=== PATIENT | female | born 1990 | race Caucasian/White ===

== ENCOUNTER → 2016-10-03 | Outpatient (CLI) | payer OTHER ==
[~2016-10-03] MED LIST: PRENTAB26 PO
[2016-10-07 23:54] LABS: CHLAMYDIA TRACH RNA*** NOT DETECTED (NOT DETECTED); GC (NEIS GONORRHOEAE)RNA** NOT DETECTED (NOT DETECTED)
== END | disposition home or self-care (01) ==
LOC: C.LABSPEC 17:42
PROVIDERS: ATTEND Obstetrics & Gynecology
DX: Z12.4 Encounter for screening for malignant neoplasm of cervix (principal)

== ENCOUNTER → 2016-10-03 | Outpatient (CLI) | payer OTHER | END | disposition home or self-care (01) | LOC: C.PAPS 10:10 | PROVIDERS: ATTEND Obstetrics & Gynecology | DX: Z01.419 Encounter for gynecological examination (general) (routine) without abnormal findings (principal) ==

== ENCOUNTER → 2017-10-09 | Outpatient (CLI) | payer OTHER | END | disposition home or self-care (01) | LOC: C.PAPS 08:34 | PROVIDERS: ATTEND Obstetrics & Gynecology | DX: Z01.411 Encounter for gynecological examination (general) (routine) with abnormal findings (principal); R87.612 Low grade squamous intraepithelial lesion on cytologic smear of cervix (LGSIL) ==

== ENCOUNTER → 2017-10-09 | Outpatient (CLI) | payer OTHER ==
[2017-10-09 16:11] LABS: PROLACTIN 9.14 ng/mL
[2017-10-09 16:12] LABS: FOLLICLE STIMULAT HORMONE 5.4 IU/L
== END | disposition home or self-care (01) ==
LOC: C.LAB1850 14:28
PROVIDERS: ATTEND Obstetrics & Gynecology
DX: N91.2 Amenorrhea, unspecified (principal)

== ENCOUNTER 2017-10-26 17:37 | Emergency (ER) | payer BC, OTHER ==
[~2017-10-26] VITALS: Ht 160 cm; Wt 123.7 kg
[2017-10-26 17:50] VITALS: BP 137/83; PULSE 90; TEMP 36.8; O2SAT 100; Ht 160 cm; Wt 123.7 kg
[2017-10-26] MEDS ORDERED: IBUPROFEN 200 MG TAB PO STA (18:19)
[2017-10-26] MEDS ORDERED: OXYCODONE/ACETAMINOPHEN 5-325 TAB PO STA (18:19)
--- NOTE | 2017-10-26 18:23 | EMERGENCY ROOM VISIT NOTE ---
ED Visit Note First contact with patient: 17:54 CHIEF COMPLAINT: knee pain HISTORY OF PRESENT ILLNESS: This patient is a 27-year-old female who presents to the emergency department with complaints of right knee pain after she twisted it prior to arrival. The patient reports that her "knee gave out." She went to the ground. She denies any other injuries. The patient has had chronic bilateral knee pain. She has never seen an orthopedic surgeon. She has not taken anything for pain. REVIEW OF SYSTEMS: A 6 system review of systems was completed with positives and pertinent negatives listed in the HPI. ALLERGIES: Sulfa MEDICATIONS: Reviewed PMH: Hypertension SOCIAL HISTORY: Denies tobacco or EtOH use. PHYSICAL EXAM: Vital Signs: Reviewed Nurse's notes, vital signs stable. GENERAL : 27-year-old female, no acute distress, but appears in pain, well-developed, well-nourished. MENTAL STATUS: Alert, oriented to person place and time, and cooperative. MUSCULOSKELETAL: The right knee is minimally swollen. There is no ecchymosis. There is no joint effusion present. The patient is tender over the medial aspect of the knee. There is no joint line tenderness. The patella not subluxate. Range of motion is limited secondary to pain. Strength of the quads and hamstrings is 5/5. Patellar tendon is intact. Pratima is with varus and valgus stressing. The foot and toes are warm and well-perfused. Dorsalis pedis pulse 2+. Sensation to pain and light touch is intact. Capillary refill less than 2 seconds. EMERGENCY DEPARTMENT COURSE: I examined the patient. The patient was medicated with 1 Percocet and Motrin 800 mg x-rays of the right knee were reviewed by myself and read by radiology IMPRESSION: Trace joint effusion and mild medial soft tissue swelling without fracture. The above report was generated using voice recognition software. It may contain grammatical, syntax or spelling errors. Electronically signed by: Yunier Cabrera M.D. 10/26/2017 6:45 PM Dictated Date/Time: 10/26/2017 6:44 PM The patient was placed in a knee immobilizer under my direction and the position was satisfactory. The patient was instructed on the use of crutches. The patient was discharged home in good condition. DIAGNOSIS: Right knee injury DISCHARGE INSTRUCTIONS: Ice and elevate knee for swelling and pain. Wear knee immobilizer when up and about. Use crutches - minimal weight on foot. Ibuprofen 800 mg every 8 hours Percocet 1-2 tabs every 4 hours for severe pain. Do not drink alcohol or drive while taking this medication. This may be taken with ibuprofen, but avoid Tylenol. Follow-up with Orthopedics for further evaluation and treatment -please call tomorrow morning for a follow-up appointment. A number has been provided. Do not hesitate to return to the emergency department with any new, worsening or concerning symptoms It was a pleasure participating in your care today This chart was completed in part utilizing [employer] Speech Voice Recognition software. Attempts were made to minimize the grammatical errors, random word insertions, pronoun errors and incomplete sentences. Any formal questions or concerns about the content, text or information contained within the body of this dictation should be directly addressed to the provider for clarification.
--- NOTE | 2017-10-26 18:46 | DIAGNOSTIC IMAGING REPORT ---
R KNEE 3 VIEWS HISTORY: 27 years-old Female R knee pain acute right knee pain COMPARISON: None available TECHNIQUE: 3 views of the right knee FINDINGS: No acute fracture, dislocation, osteochondral defect or significant degenerative changes. Mild medial soft tissue swelling about the knee. Trace joint effusion. IMPRESSION: Trace joint effusion and mild medial soft tissue swelling without fracture. The above report was generated using voice recognition software. It may contain grammatical, syntax or spelling errors. Electronically signed by: Yunier Cabrera M.D. 10/26/2017 6:45 PM Dictated Date/Time: 10/26/2017 6:44 PM
[2017-10-26] MEDS ORDERED: METO50TA16 PO (18:49)
[2017-10-26] MEDS ORDERED: OXYC-57 PO (19:14)
[2017-10-26] MEDS ORDERED: PERCOCET HOME PACK PO ONE (19:15)
== END 2017-10-26 20:03 | disposition home or self-care (01) ==
LOC: C.EDB 17:38 → C.EDD 20:03
DX: S89.91XA Unspecified injury of right lower leg, initial encounter (principal); M25.561 Pain in right knee; M25.461 Effusion, right knee; X50.9XXA Other and unspecified overexertion or strenuous movements or postures, initial encounter

== ENCOUNTER → 2018-01-26 | Day surgery (SDC) | payer OTHER ==
[2017-12-17 10:57] VITALS: BMI 51.0
--- NOTE | 2018-01-22 14:37 | PAT Medication Instructions ---
Service Date Jan 22, 2018. Current Home Medication List Multivit/Min/Iron/Fol Ac/Pren ( Vitamin), 1 TAB PO DAILY Medication Instructions For Your Scheduled Surgery - Hold the following medications the morning of surgery: Multivit/Min/Iron/Fol Ac/Pren ( Vitamin), 1 TAB PO DAILY If you have any questions please call us at [phone] or [phone] or [phone]
[2018-01-22 15:14] VITALS: Ht 154.9 cm; Wt 126.6 kg
[2018-01-22 15:58] LABS: CALCIUM 8.9 mg/dl (8.5-10.1); CREATININE 0.71 mg/dl (0.60-1.20); POTASSIUM 3.8 mmol/L (3.5-5.1)
[~2018-01-26] VITALS: Ht 154.9 cm; Wt 126.6 kg
[~2018-01-26] MED LIST changes: +ACETAMINOPHEN 1000 MG/100 ML IV IV ONE; +ACETIC ACID 4% (WHITE VINEGAR) 30ML ONE; +ATROPINE SULFATE 0.1 MG/ML 5ML SYR IV PRN; +DEXAMETHASONE SOD INJ 4 MG/ML VIAL ONE; +EpHEDrine SULFATE INJ 50 MG/ML AMP IV PRN; +FENTANYL CITRATE INJ 50 MCG/1 ML 2 ML VIAL IV PRN; +FENTANYL CITRATE INJ 50 MCG/1 ML 2 ML VIAL ONE; +FERRIC SUBSULFATE 8 GM VIAL ONE; +IBUPROFEN 600 MG TAB PO PRN; +IODINE SOLN STRONG 14 ML ONE; +KETOROLAC TROMETHAMINE 30 MG/ML VIAL IV. PRN; +LIDO 2%/EPINEPHRINE 1:100000 20 ML VIAL ONE; +LIDOCAINE HCL 2% 2 ML VIAL (20MG/ML) ONE; +MIDAZOLAM HCL 1 MG/ML 2ML VIAL ONE; +MoRPHine SULFATE 4 MG/ML 1 ML CARP\\VIAL IV PRN; +ONDANSETRON INJ 2 MG/ML 2 ML VIAL IV PRN; +ONDANSETRON INJ 2 MG/ML 2 ML VIAL ONE; +OXYCODONE/ACETAMINOPHEN 5-325 TAB PO PRN; +PROPOFOL IV EMULSION 10 MG/ML 20 ML VIAL ONE; +ROCURONIUM BROMIDE 10 MG/ML 5 ML VIAL ONE; +SCOPOLAMINE 1.5 MG TDSY TD ONE; +SODIUM CHLORIDE 0.9% 1000ML 1,000 ML IV SCH; +SUCCINYLCHOLINE CHLORIDE 20 MG/ML 10 ML VIAL IV ONE
--- NOTE | 2018-01-26 07:01 | History & Physical Bridge - [place] ---
H&P Re-Evaluation Bridge Note: I have examined the patient, reviewed the History & Physical and in the interval since the performance of the History & Physical I have noted the following changes of clinical significance: No changes noted
--- NOTE | 2018-01-26 07:34 | [facility] Post Operative Brief Note ---
Immediate Operative Summary Operative Date Jan 26, 2018. Pre-Operative Diagnosis Pap Smear Abnormality of Cervix with LGSIL--SKYE 2 Post-Operative Diagnosis Same Procedure(s) Performed Loop Electrosurgical Excision Procedure Surgeon Dr. Han Physician Allergist Immunologist Surgeon(s) None Estimated Blood Loss 10cc Findings Consistent with Post-Op Diagnosis Fluids (cc crystalloids) 700cc Specimens posterior cervix anterior cervix central cervix Drains None Anesthesia Type General Complication(s) none Disposition Accompanied Pt To Recover: no Disposition: Recovery Room / PACU
--- NOTE | 2018-01-26 07:36 | Discharge Instructions ---
Discharge Instructions Date of Service Jan 26, 2018. Visit Reason for Visit: Pap Smear Abnormality Of Cervix With Lgsil Discharge Discharge Diagnosis / Problem: s/p leep Discharge Goals Goal(s): Specific goals Activity Recommendations Activity Limitations: per Instructions/Follow-up section Anesthesia . Post Anesthesia Instructions: If you have had General Anesthesia or IV Sedation: * Do not drive today. * Resume driving when surgeon permits. * Do not make important decisions or sign legal documents today. * Call surgeon for: 1. Temperature elevations greater than 101 degrees F. 2. Uncontrollable pain. 3. Excessive bleeding. 4. Persistent nausea and vomiting. 5. Medication intolerance (nausea, vomiting or rash). * For nausea and vomiting use only clear liquids such as: tea, soda, bouillon until nausea subsides, then gradually increase diet as tolerated. * If you have any concerns or questions, call your surgeon's office. If physician is unavailable and it is an emergency, call 911 or go to the nearest emergency room. . Instructions / Follow-Up Instructions / Follow-Up ACTIVITY RECOMMENDATIONS: * Avoid tampons, douching, hot tubs, pools, and intercourse until cleared by physician. * May shower as usual. * No strenuous activity for 72 hours. After 72 hours, you may do anything you feel like doing as long as it does not make you hurt or bleed. SPECIAL CARE INSTRUCTIONS: Special Diet: * Mild nausea may occur in the immediate post-operative period. * Take clear liquids such as tea, cola or bouillon until all nausea has subsided; you may then resume your normal diet. Special Care: * Light bleeding and vaginal spotting can last from a few days to 3-4 weeks. Call your doctor if bleeding becomes heavier than the heaviest part of your period. * Check your temperature twice a day for one week. If it goes above 100.4 degrees Fahrenheit (38.0 Celsius), notify your doctor. * Call your doctor's office for an appointment for 4 weeks after your surgery. FOLLOW-UP VISIT: Call your doctor's office for an appointment for 4 weeks after your surgery. Diet Recommendations Recommended Home Diet: no limitations, resume previous diet Procedures Procedures Performed: Loop Electrosurgical Excision Procedure Pending Studies Studies pending at discharge: no Medical Emergencies . Who to Call and When: Medical Emergencies: If at any time you feel your situation is an emergency, please call 911 immediately. . Non-Emergent Contact Non-Emergency issues call your: Electrical Technician . . "Provider Documentation" section prepared by Shante Han. .
--- NOTE | 2018-01-26 07:59 | Anesthesia Progress Nt - [facility] ---
Anesthesia Post Op Note Date & Time Jan 26, 2018 at 07:59 Vital Signs Pain Intensity: 0 Vital Signs Past 12 Hours Date Time Temp Pulse Resp B/P (MAP) Pulse Ox O2 Delivery O2 Flow Rate FiO2 01/26/18 07:46 128/89 01/26/18 07:45 97 14 98 01/26/18 07:45 98 14 01/26/18 07:44 36.1 93 18 133/103 97 Mask 8 01/26/18 07:42 133/103 01/26/18 06:47 139/89 (106) 01/26/18 06:29 36.9 88 18 155/110 (125) 97 Room Air Notes Mental Status: alert / awake / arousable, participated in evaluation Pt Amnestic to Procedure: Yes Nausea / Vomiting: adequately controlled Pain: adequately controlled Airway Patency, RR, SpO2: stable & adequate BP & HR: stable & adequate Hydration State: stable & adequate Anesthetic Complications: no major complications apparent
[2018-01-26 08:28] VITALS: BP 109/74; PULSE 66; TEMP 36.5; O2SAT 96
--- NOTE | 2018-01-28 09:45 | OPERATIVE REPORT ---
DATE OF OPERATION: 01/26/2018 PREOPERATIVE DIAGNOSES: Cervical intraepithelial neoplasia 2 POSTOPERATIVE DIAGNOSIS: Cervical intraepithelial neoplasia 2. PROCEDURE: LEEP. SURGEON: Shante Han MD [employer] TE[employer]: None. ANESTHESIA: General per endotracheal tube. ESTIMATED BLOOD LOSS: 10 mL FLUIDS: 700 mL of IV fluid. URINE OUTPUT: None. INDICATIONS: The patient is a 27-year-old with an abnormal Pap smear, which was low grade, colposcopy biopsy shows SKYE 2 at 6 o'clock. She has opted for interventional procedure FINDINGS: A large transformation zone on the cervix. Acetowhite epithelium noted at 6 o'clock. No other significant lesions. COMPLICATIONS: None. DRAINS: None. DISPOSITION: To recovery room in stable condition. PROCEDURE: The patient was taken to the operating room, where she was identified verbally and by bracelet. She was placed in dorsal spine position, where general anesthesia was induced without difficulty. Then she was placed in [facility] and a timeout was held identifying correct patient, procedure, and positioning. The patient was draped with moistened blue towels. A coated speculum was placed into the vagina and suction was hooked to the speculum. Acetic acid was applied to the cervix and then evaluation of the cervix revealed acetowhite epithelium at the 6 o'clock position, a large transformation zone. A LEEP was performed in 3 passes, the first being a posterior pass, the second being an anterior pass, and the third being a central pass. All specimens were sent separately. Bleeding was attended to with Bovie electrocautery and . All edges externally were cauterized with the ball cautery. Hemostasis was noted to be excellent. The procedure was terminated. All sponge, lap, and needle counts were correct x2. The patient tolerated the procedure well and was taken to recovery room in stable condition. I attest to the content of the Intraoperative Record and any orders documented therein. Any exception s are noted below.
== END | disposition home or self-care (01) ==
LOC: X.SURG 01-22 13:48
PROVIDERS: ATTEND Obstetrics & Gynecology
DX: N87.1 Moderate cervical dysplasia (principal); N72 Inflammatory disease of cervix uteri; I10 Essential (primary) hypertension; K21.9 Gastro-esophageal reflux disease without esophagitis; E66.01 Morbid (severe) obesity due to excess calories; Z82.49 Family history of ischemic heart disease and other diseases of the circulatory system; Z88.2 Allergy status to sulfonamides

== ENCOUNTER 2018-01-31 10:40 | Emergency (ER) | payer BC, OTHER ==
[~2018-01-31] VITALS: Ht 154.9 cm; Wt 121.6 kg
[~2018-01-31 10:40] MED LIST changes: -ACETAMINOPHEN 1000 MG/100 ML IV IV ONE; -ACETIC ACID 4% (WHITE VINEGAR) 30ML ONE; -ATROPINE SULFATE 0.1 MG/ML 5ML SYR IV PRN; -DEXAMETHASONE SOD INJ 4 MG/ML VIAL ONE; -EpHEDrine SULFATE INJ 50 MG/ML AMP IV PRN; -FENTANYL CITRATE INJ 50 MCG/1 ML 2 ML VIAL IV PRN; -FENTANYL CITRATE INJ 50 MCG/1 ML 2 ML VIAL ONE; -FERRIC SUBSULFATE 8 GM VIAL ONE; -IBUPROFEN 600 MG TAB PO PRN; -IODINE SOLN STRONG 14 ML ONE; -KETOROLAC TROMETHAMINE 30 MG/ML VIAL IV. PRN; -LIDO 2%/EPINEPHRINE 1:100000 20 ML VIAL ONE; -LIDOCAINE HCL 2% 2 ML VIAL (20MG/ML) ONE; -MIDAZOLAM HCL 1 MG/ML 2ML VIAL ONE; -MoRPHine SULFATE 4 MG/ML 1 ML CARP\\VIAL IV PRN; -ONDANSETRON INJ 2 MG/ML 2 ML VIAL IV PRN; -ONDANSETRON INJ 2 MG/ML 2 ML VIAL ONE; -OXYCODONE/ACETAMINOPHEN 5-325 TAB PO PRN; -PROPOFOL IV EMULSION 10 MG/ML 20 ML VIAL ONE; -ROCURONIUM BROMIDE 10 MG/ML 5 ML VIAL ONE; -SCOPOLAMINE 1.5 MG TDSY TD ONE; -SODIUM CHLORIDE 0.9% 1000ML 1,000 ML IV SCH; -SUCCINYLCHOLINE CHLORIDE 20 MG/ML 10 ML VIAL IV ONE
[2018-01-31 11:06] VITALS: TEMP 37; Ht 154.9 cm; Wt 121.6 kg
--- NOTE | 2018-01-31 11:35 | DIAGNOSTIC IMAGING REPORT ---
RIGHT ANKLE 3 VIEWS CLINICAL HISTORY: Fall with right ankle injury. FINDINGS: 3 views of the right ankle are obtained. No prior studies are available for comparison at the time of dictation. The skeletal structures are well mineralized. No fracture is seen. The ankle mortise is intact. There is a plantar calcaneal enthesophyte. No joint effusion is identified. Mild soft tissue swelling is present around ankle. IMPRESSION: Mild soft tissue swelling with no right ankle fracture identified. Electronically signed by: Manoj Menchaca M.D. 01/31/2018 11:34 AM Dictated Date/Time: 01/31/2018 11:33 AM
[2018-01-31 12:21] VITALS: BP 134/85; PULSE 84; O2SAT 98
--- NOTE | 2018-02-01 16:09 | EMERGENCY ROOM VISIT NOTE ---
ED Visit Note First contact with patient: 11:04 Chief Complaint: I fell and hurt my right ankle. History of Present Illness: Ms. Flaherty is a 27-year-old white female who is brought into the ED via ambulance complaining of lateral right ankle pain. Patient reports less than an hour ago she was walking downstairs. She reports she tripped and fell down 3 stairs injuring her right ankle. She is not exactly sure the mechanism of injury but believes it was an inversion injury. During the fall she heard 3 pops when she twisted her ankle. Currently she is complaining of severe pain over the lateral aspect of the ankle. She describes the pain as a sharp and throbbing. She rates her discomfort 5/10. Her pain is nonradiating. Her pain is located over all the ligamentous structures around the lateral malleolus. Her pain worsens with ambulation, palpation, inversion and plantar flexion. She has not identified any alleviating factors related to the pain. She has not taken any medications for pain prior to arrival at the hospital. She denies any associated hip pain, knee pain, lower leg pain, foot pain, leg weakness/numbness/tingling. Additionally she denies any previous significant injuries or surgeries to the ankle. Review of Systems: As noted above in history of present illness. At least body systems were reviewed and found to be negative as noted above. Past Medical History: Patient denies. Current Medications: Patient denies. Allergies to Medications: Sulfa. Social History: Patient is currently employed; she feels safe in her home environment; she denies tobacco use. Physical Examination: Vital Signs: Date Time Temp Pulse Resp B/P (MAP) Pulse Ox O2 Delivery O2 Flow Rate FiO2 01/31/18 12:21 84 22 134/85 98 01/31/18 11:06 37.0 88 18 126/96 98 Room Air GENERAL: 27-year-old female in mild distress due to pain, nontoxic-appearing, afebrile and hemodynamically stable. NEUROLOGICAL: Awake, alert and oriented to person, place and time. Answering questions appropriately and following commands. SKIN: Warm, dry and pink. No soft tissue trauma noted. RIGHT LOWER EXTREMITY: Shows no acute deformities. No shortening or malrotation. No tenderness in the knee, lower leg or foot. Moderate tenderness over the ligamentous structures surrounding the lateral malleolus with mild swelling but no bony deformity or crepitus. Decreased range of motion in all movements of the ankle due to pain. I attempted to do ligamentous stretching for laxity but patient could not tolerate the activity. She was able to wiggle her toes. Throughout her foot the skin was warm and pink and capillary refill is brisk. She was able to distinguish light sensations to all dermatomes. ED Course: Patient is assessed as noted above. Patient's medication list was reviewed. Patient was offered pain medication and refused; she was given ice for pain and swelling. Right Ankle X-Rays: Was read by myself and the radiologist showing no acute fractures or dislocations. Mild soft tissue swelling without joint effusion. Patient was placed in a gel splint; she brought crutches from home and they were adjusted for her height and she was given education on her use. Patient was educated about today's findings and instructed on her treatment plan ; she verbalized understanding and agreement with this plan. Clinical Impression: Right ankle pain. Probably ankle sprain. Disposition: Patient discharged home in stable condition accompanied by male friend; prior to departure she was reassessed and subjectively reported she was feeling worse and rated her discomfort 7/10. Plan: Comfort measures were discussed with the patient including rest, ice, elevation , gel splint and crutches and alternating ibuprofen and acetaminophen every 3 hours. Patient was encouraged to follow-up with orthopedics if no better in 7-10 days. Patient was encouraged return the ED for worsening/uncontrolled pain, uncontrolled swelling, foot weakness/numbness/tingling or any new/concerning symptoms.
== END 2018-01-31 12:22 | disposition home or self-care (01) ==
LOC: EDBD 10:40 → C.EDD 10:42
DX: M25.571 Pain in right ankle and joints of right foot (principal); W10.9XXA Fall (on) (from) unspecified stairs and steps, initial encounter